=== PATIENT | female | born 1970 | race Caucasian/White ===

== ENCOUNTER → 2018-10-09 08:27 | Outpatient (CLI) | payer OTHER, SELFPAY ==
--- NOTE | 2018-10-09 | DI.MG.S_ITS ---
BILATERAL DIGITAL SCREENING MAMMOGRAM 3D/2D WITH CAD: 10/09/2018 CLINICAL: Routine screening. Comparison is made to exams dated: 09/12/2017 mammogram, 11/01/2015 mammogram, and 09/21/2014 mammogram - [facility]. The tissue of both breasts is extremely dense, which lowers the sensitivity of mammography. Current study was also evaluated with a Computer Aided Detection (CAD) system. There are benign calcifications in both breasts. A linear scar marker overlies the inferior medial right breast. No significant masses, calcifications, or other findings are seen in either breast. There has been no significant interval change. IMPRESSION: There is no mammographic evidence of malignancy. A 1 year screening mammogram is recommended. This exam was interpreted at Station ID: [id number]. NOTE: For mammograms, a report in lay terms will be sent to the patient. Approximately 15% of breast malignancies will not be visualized mammographically. In the management of a palpable breast mass, a negative mammogram must not discourage biopsy of a clinically suspicious lesion. Electronically Signed By: Huey Dominguez M.D. ecl/:10/10/2018 05:47:06 copy to: Dao Mcnally letter sent: Normal Exam ACR BI-RADS Category 2: Benign Finding(s) 3342F
== END ==
PROVIDERS: Family Provider Internal Medicine; PCP Internal Medicine; Visit Provider Physician Assistant Medical
DX: Z12.31 Encounter for screening mammogram for malignant neoplasm of breast (principal)
CPT/HCPCS: 77063; 77067

== ENCOUNTER → 2019-08-19 10:05 | Outpatient (CLI) | payer OTHER, SELFPAY ==
--- NOTE | 2019-08-19 10:14 | DI.CT.S_ITS ---
PROCEDURE: CT UE LT WO CON INDICATIONS: left wrist pain TECHNIQUE: Noncontrast 1 mm axial sections acquired through the carpal bones, with coronal and sagittal reformats. COMPARISON: [facility], MR, WRIST WITHOUT CONTRAST, 07/16/2014, 11:12. [facility], MR, KNEE WITHOUT CONTRAST, 04/03/2013, 19:03. FINDINGS: Image quality: Diagnostic. Bones: There is no acute fracture, dislocation, or suspicious osseous lesion involving the osseous structures of the wrist. Moderate degenerative cystic changes are evident involving the ulnar aspect of the lunate. There also are mild degenerative cystic changes involving the capitate and distal aspect of the scaphoid. Bony alignment of the osseous structures of the wrist is within normal limits. No significant degenerative changes are present. Soft tissues: No soft tissue masses or fluid collections are appreciated. No significant atrophy involving the intrinsic muscles of the hand or distal forearm are appreciated. Please note that the ligamentous, tendinous, and cartilaginous structures of the wrist are not adequately evaluated on CT. No obvious abnormalities are appreciated. IMPRESSION: 1. Degenerative cystic changes involving the lunate appear to have slightly progressed in the interim. 2. No acute fractures of the wrist. Dictated by: Hunter Murrell M.D. on 08/19/2019 at 10:58 Approved by: Hunter Murrell M.D. on 08/19/2019 at 11:03
== END ==
PROVIDERS: PCP Physician Assistant Medical
DX: M25.532 Pain in left wrist (principal)
CPT/HCPCS: 73200

== ENCOUNTER → 2019-12-17 09:01 | Outpatient (CLI) | payer OTHER, SELFPAY ==
--- NOTE | 2019-12-17 | DI.MG.S_ITS ---
BILATERAL DIGITAL SCREENING MAMMOGRAM 3D/2D WITH CAD: 12/17/2019 CLINICAL: Routine screening. Comparison is made to exams dated: 10/09/2018 mammogram, 09/12/2017 mammogram, 11/01/2015 mammogram, 09/21/2014 mammogram, and 04/24/2011 mammogram - [facility]. The tissue of both breasts is extremely dense, which lowers the sensitivity of mammography. Current study was also evaluated with a Computer Aided Detection (CAD) system. There are calcifications in both breasts that are not significantly changed from prior exams. No significant masses, calcifications, or other findings are seen in either breast. There has been no significant interval change. IMPRESSION: There is no mammographic evidence of malignancy. A 1 year screening mammogram is recommended. This exam was interpreted at Station ID: [id number]. NOTE: For mammograms, a report in lay terms will be sent to the patient. Approximately 15% of breast malignancies will not be visualized mammographically. In the management of a palpable breast mass, a negative mammogram must not discourage biopsy of a clinically suspicious lesion. Electronically Signed By: Huey Dominguez M.D. ecl/:12/17/2019 11:32:32 letter sent: Normal Exam ACR BI-RADS Category 2: Benign Finding(s) 3342F
== END ==
PROVIDERS: PCP Physician Assistant Medical
DX: Z12.31 Encounter for screening mammogram for malignant neoplasm of breast (principal)
CPT/HCPCS: 77063; 77067

== ENCOUNTER → 2020-01-09 09:29 | Outpatient (CLI) | payer OTHER, SELFPAY ==
--- NOTE | 2020-01-09 | DI.MRI.S_ITS ---
PROCEDURE: MR KNEE RT WO CON INDICATIONS: Unspecified internal derangement of right knee TECHNIQUE: Noncontrast sagittal PD fast spin echo and T2 fast spin echo with fat saturation, sagittal 3-D FLASH with fat saturation; coronal T1 spin echo and PD fast spin echo with fat saturation, and axial PD fast spin echo with fat saturation through the knee. COMPARISON: Located [facility], MR, KNEE WITHOUT CONTRAST, 04/03/2013, 19:03. FINDINGS: Image quality: Excellent. Menisci: There is increased horizontally oriented linear high T2 signal intensity traversing the lateral meniscal body, demonstrating superior articular surface extension, indicating horizontal tearing. Amorphous high signal intensity within the posterior horn medial meniscus demonstrating inferior articular surface extension is unchanged. Cruciate ligaments: The anterior cruciate ligament graft is present, which demonstrates lateral fixation, as before. ACL graft is intact. Posterior cruciate ligament is intact. Medial structures: Status post medial collateral ligament and medial capsular repair. Medial collateral heterogeneous but intact, as before. Visualized portions of the pes anserinus tendons appear normal. Mild T2 signal elevation within the semimembranosus tendon at the tibial insertion site is present. No abnormal bursal fluid. Lateral structures: The lateral collateral ligament, long and short heads of the biceps femoris tendon appear intact. The popliteus tendon appears normal. Iliotibial band appears normal. Anterior structures: The quadriceps and patellar tendons appear intact. Patellar alignment is normal. No femoral trochlear dysplasia or ventral trochlear prominence. No edema in the infrapatellar fat pad. Bones and cartilage: No bone marrow contusions or fractures. There is mild tricompartmental periarticular osteophyte formation. Ligament anchor within the proximal tibia is present. There is mild subchondral degenerative marrow edema within the patellar apex and lateral patellar facet. There is a new, 17 mm diameter full-thickness articular cartilage defect overlying the weightbearing aspect of the medial femoral condyle. Mild diffuse articular cartilage loss overlies the weightbearing aspects of the lateral femoral condyle and lateral tibial plateau. There is increased, severe articular cartilage loss overlying the patellar apex and lateral patellar facet. Joint space: There is a small knee joint effusion and a small Galarza's cyst. Normal appearing synovial plicae are incidentally noted. IMPRESSION: 1. Intact ACL graft. 2. Medial and lateral meniscal tearing as described above. 3. Tricompartmental osteoarthritis with associated articular cartilage loss. New/progressive articular cartilage loss involving the medial and patellofemoral compartments. 4. Intact medial collateral ligament reconstruction. 5. Insertional tendinitis of the semimembranosus. 6. Knee joint effusion and Galarza's cyst. Dictated by: Zahida Cristina M.D. on 01/11/2020 at 8:50 Approved by: Zahida Cristina M.D. on 01/11/2020 at 8:58
== END ==
PROVIDERS: PCP Physician Assistant Medical; Referring Provider Physician Assistant Medical; Visit Provider Orthopaedic Surgery
DX: S83.281A Other tear of lateral meniscus, current injury, right knee, initial encounter (principal); S83.241A Other tear of medial meniscus, current injury, right knee, initial encounter; M17.11 Unilateral primary osteoarthritis, right knee; M71.21 Synovial cyst of popliteal space [Baker], right knee; M25.461 Effusion, right knee
CPT/HCPCS: 73721

== ENCOUNTER → 2020-06-23 14:06 | Outpatient (CLI) | payer OTHER, SELFPAY ==
--- NOTE | 2020-06-23 | DI.US.S_ITS ---
ULTRASOUND OF RIGHT BREAST AND AXILLA: 06/23/2020 CLINICAL: Palpable right breast lump. Comparison is made to exams dated: 06/23/2020 mammogram, 12/17/2019 mammogram, 10/09/2018 mammogram, 09/12/2017 mammogram, 11/01/2015 mammogram, and 09/21/2014 mammogram - [facility]. Color flow and real-time ultrasound of the right breast axilla were performed. Landry scale images of the real-time examination were reviewed. There is a 1.1 cm x 1.4 cm x 1.2 cm irregular mass with indistinct and angular margins in the right breast at 6 o'clock posterior depth 7 cm from the nipple. This irregular mass is hypoechoic with posterior acoustic shadowing. This correlates as palpated, with mammography findings, and area of clinical concern. There is associated architectural distortion. Color flow imaging demonstrates that there is vascularity present. No significant abnormalities were seen sonographically in the right axilla. IMPRESSION: SUSPICIOUS OF MALIGNANCY The 1.1 cm x 1.4 cm x 1.2 cm irregular mass in the right breast is suspicious of malignancy. An ultrasound guided biopsy is recommended. Findings and biopsy recommendations were discussed with the patient by Dr. Loza during today's visit. This exam was interpreted at Station ID: [id number]. Electronically Signed By: Aki Koehler M.D. aty/:06/23/2020 16:52:25 letter sent: Biopsy Required Ultrasound BI-RADS: 4 Suspicious for malignancy
--- NOTE | 2020-06-23 | DI.MG.S_ITS ---
UNILATERAL RIGHT DIGITAL DIAGNOSTIC MAMMOGRAM 3D/2D: 06/23/2020 CLINICAL: Right breast mass and dimpling. Comparison is made to exams dated: 12/17/2019 mammogram, 10/09/2018 mammogram, and 09/12/2017 mammogram - [facility]. The tissue of right breast is heterogeneously dense. This may lower the sensitivity of mammography. There are benign calcifications in the right breast that are not significantly changed. The right breast has post-operative findings with development of new irregular architectural distortion in the right breast posterior depth inferior region seen on the mediolateral oblique view only. There is a post-surgical scar associated with the architectural distortion. No other significant masses or calcifications are seen in the breast. IMPRESSION: INCOMPLETE: NEEDS ADDITIONAL IMAGING EVALUATION The new irregular architectural distortion in the right breast is indeterminate. Further evaluation with ultrasound is recommended and scheduled to immediately follow this exam. This exam was interpreted at Station ID: [id number]. NOTE: For mammograms, a report in lay terms will be sent to the patient. Approximately 15% of breast malignancies will not be visualized mammographically. In the management of a palpable breast mass, a negative mammogram must not discourage biopsy of a clinically suspicious lesion. Electronically Signed By: Aki Koehler M.D. aty/:06/23/2020 16:46:25 ACR BI-RADS Category 0: Incomplete 3340F
== END ==
PROVIDERS: PCP Physician Assistant Medical; Referring Provider Physician Assistant Medical; Visit Provider Physician Assistant Medical
DX: R92.8 Other abnormal and inconclusive findings on diagnostic imaging of breast (principal); N63.15 Unspecified lump in the right breast, overlapping quadrants
CPT/HCPCS: 76642; 77065; G0279

== ENCOUNTER → 2020-07-05 13:43 | Outpatient (CLI) | payer OTHER, SELFPAY ==
--- NOTE | 2020-07-05 | DI.US.S_ITS ---
ULTRASOUND GUIDED BIOPSY RIGHT BREAST USING VACUUM DEVICE WITH MARKING DEVICE INSERTED: 07/05/2020 CLINICAL: Right breast mass. PATIENT CONSENT: Risks (minor bleeding, infection, vasovagal reaction and repeat procedure), benefits and alternatives were explained to the patient and written informed consent was obtained. Correlation is made to exams dated: 06/23/2020 ultrasound, 06/23/2020 mammogram, 12/17/2019 mammogram, and 10/09/2018 mammogram - [facility]. An ultrasound guided biopsy using real-time ultrasound was performed for the irregular shaped mass located in the right breast at 6 o'clock posterior depth. The skin was prepped in the usual manner. Local anesthetic was administered to the access site. A small incision was made in the breast. The abnormality was approached from the lateral aspect. A biopsy needle was placed adjacent to the abnormality under ultrasound guidance. Once the needle was documented to be in the correct location, seven specimens were obtained using the Mammotome biopsy system. A clip was inserted into the biopsy cavity. The specimens were sent to the laboratory for pathological analysis. IMPRESSION: ULTRASOUND GUIDED BIOPSY MALIGNANT Ultrasound guided biopsy of the mass in the right breast at 6 o'clock posterior depth was successful. 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 Pathology results are concordant with imaging findings. A surgical/oncologic consultation is recommended. This exam was interpreted at Station ID: [id number]. Heath elmore,aty/:07/11/2020 18:45:23
--- NOTE | 2020-07-05 | PATH_ITS ---
[facility] Accession Number: [id number] . 01 Material submitted: . breast - RIGHT BREAST 6:00 . 02 Diagnosis: Right Breast, 6 O'Clock, Needle Core Biopsies: Invasive ductal carcinoma with the following features: Philadelphia grade 1 of 3 (moderate tubule formation, moderate nuclear grade, low mitotic activity). Greatest linear extent: 1.1 cm. DCIS: Focally present, cribriform. Microcalcifications: Not identified. Lymphovascular invasion: Not identified. . . CAP BREAST BIOMARKER REPORTING TEMPLATE: . Estrogen Receptor (ER) Status: Positive, 90%. Average intensity of staining: Strong. Primary antibody: SP1 Progesterone Receptor (PgR) Status: Positive, 50%. Average intensity of staining: Strong. Primary antibody: 1E2 HER2 (by immunohistochemistry): Equivocal (2+). Percentage of cells with uniform intense complete membrane staining: Primary antibody: 4B5 . Cold Ischemia and Fixation Times: Meets requirements in the latest version of the ASCO/CAP guidelines. Testing performed on Block Number: . TECHNICAL NOTE: The scoring criteria for breast biomarkers by immunohistochemistry is based on the current ASCO/CAP guidelines (Ibis et al, Arch Pathol Lab Med 2010: 134(6): 907-922 / Catarina Morfin al, Arch Pathol Lab Med 2014: 138(2): 241-256). Deparaffinized sections of formalin fixed tissue (along with appropriate positive controls) are incubated with the above antibody(s). Using the automated Mina stainer, tissue is incubated with the designated antibody* which is then localized by a non-biotin, dual polymer detection system. The external controls are reviewed for appropriate reactivity and found to be adequate. Results on the target cell population are indicated above. These tests have not been validated on decalcified tissue. * This test was developed and its performance characteristics determined by [employer]. It has not been cleared or approved by the U.S. Food and Drug Administration. The FDA has determined that such clearance or approval is not necessary. This test is used for clinical purposes. It should not be regarded as investigational or for research. . [facility] 07/07/2020 1438 [facility] . 02 Comment: The carcinoma is equivocal (2+) for HER2 overexpression by immunohistochemical technique. Fluorescence in-situ hybridization will be performed, and results issued in an addendum. . As part of routine quality compliance coordinator, Dr. Hooker has reviewed this case and agrees with the diagnosis of invasive ductal carcinoma. The preliminary finding of invasive carcinoma was discussed with the referring clinician, Jane Campos, and Dr. Silva on 07/06/20 at 4:30 p.m. . 02 Electronically signed: . Luis Eduardo Silva MD, PhD, Pathologist NPI- [id number] . 01 Gross description: . Received in formalin, labeled right breast, are five pieces of [place] adipose tissue measuring 1.4 x 0.7 x 0.3 cm to 0.7 x 0.6 x 0.3 cm. Three pieces are submitted in cassette A1, and two pieces are submitted in cassette A2. The container is labeled 6 o'clock, assuming 6:00 a.m. Approximate fixation time of 24 hours after processing. ([id number]) /[facility] 07/06/2020 0221 Local . 02 Microscopic: . The carcinoma cells are strongly and diffusely positive for E-Cadherin immunoreactivity by immunohistochemistry, consistent with ductal carcinoma. A control stain showss appropriate reactivity. . * This test was developed and its performance characteristics determined by [employer]. It has not been cleared or approved by the U.S. Food and Drug Administration. The FDA has determined that such clearance or approval is not necessary. This test is used for clinical purposes. It should not be regarded as investigational or for research. . 02 Pathologist provided ICD-10: C50.911 . 02 CPT . 261071, V12553, R19592 Performed at: 01 [facility] [address], [place], [place] [id number] MD Roger Pierre MD Phone: [phone] Performed at: 02 [facility] [address] [place] [id number] MD Sienna Hooker MD Phone: [phone]
--- NOTE | 2020-07-05 | DI.MG.S_ITS ---
UNILATERAL RIGHT DIGITAL DIAGNOSTIC MAMMOGRAM POST-NEEDLE BIOPSY: 07/05/2020 CLINICAL: Right breast mass. Comparison is made to exams dated: 06/23/2020 mammogram, 12/17/2019 mammogram, and 10/09/2018 mammogram - [facility]. The tissue of right breast is heterogeneously dense. This may lower the sensitivity of mammography. There is a marker clip in the appropriate position in the right breast at 6 o'clock anterior depth. This marker clip placement is at the biopsy site. IMPRESSION: POST PROCEDURE MAMMOGRAM FOR MARKER PLACEMENT There was a successful marker clip placement in the right breast at 6:00 position This exam was interpreted at Station ID: [id number]. NOTE: For mammograms, a report in lay terms will be sent to the patient. Approximately 15% of breast malignancies will not be visualized mammographically. In the management of a palpable breast mass, a negative mammogram must not discourage biopsy of a clinically suspicious lesion. Electronically Signed By: Heath elmore/:07/05/2020 16:27:34 ACR BI-RADS Category Post-procedure mammogram for marker placement
== END ==
PROVIDERS: PCP Physician Assistant Medical; Referring Provider Physician Assistant Medical; Visit Provider Physician Assistant Medical
DX: C50.811 Malignant neoplasm of overlapping sites of right female breast (principal); Z17.0 Estrogen receptor positive status [ER+]
CPT/HCPCS: 19083; 77065

== ENCOUNTER → 2020-07-25 13:49 | Outpatient (CLI) | payer OTHER, SELFPAY | PROVIDERS: PCP Physician Assistant Medical; Referring Provider Internal Medicine; Visit Provider Internal Medicine | DX: C50.919 Malignant neoplasm of unspecified site of unspecified female breast (principal) | CPT/HCPCS: 77080 ==

== ENCOUNTER → 2020-07-25 13:51 | Oncology outpatient (ONC) | payer OTHER, SELFPAY ==
[2020-07-20 10:22] VITALS: BP 135/91; PULSE 70; RESP 16; TEMP 36.9; O2SAT 100
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
--- NOTE | 2020-07-20 11:17 | ONC.MSW ---
Description: New Pt F/F Visit Activity: Met with pt/spouse to introduce myself as the navigator/MATERIALS PLANNING MANAGER, offered services card, and discussed what to expect with her first provider appointment and moving forward. Pt has not yet been referred to a surgeon, and is hoping to get more information today about what her options are, as well as extent of disease. Pt shares that they have 2-children, a 19-year old son, and 16-year old dtr. Pt appears to be coping well at this time, denies any further immediate needs at this time. MATERIALS PLANNING MANAGER will continue to monitor for adjustment to dx, and next steps for tx.
--- NOTE | 2020-07-20 13:51 | ONC.SCHED ---
I called and left a message for the patient to call us after she finds out when her surgery date is so that we can schedule her a follow up appt per Dr. Whatley's dictation.
[2020-07-25 14:51] LABS: Add Manual Diff / Slide Review NO; Basophils Absolute Auto 0 /uL (0-100); Basophils Percent Auto 0.5 % (0-2); Eosinophils Absolute Auto 100 /uL (0-450); Hematocrit 39.3 % (36-46); Hemoglobin 13.4 g/dL (12.0-16.0); Lymphocytes Absolute Auto 1800 /uL (1100-4500); Lymphocytes Percent Auto 24.7 % (25-40); Mean Corpuscular Hemoglobin 29.8 PG (26-34); Mean Corpuscular Volume 87.7 fL (80-100); Monocytes Absolute Auto 400 /uL (0-900); Monocytes Percent Auto 5.8 % (3-14); Neutrophils Absolute Auto 5000 /uL (1500-7000); Platelet Count 292 X10^3/uL (150-400); Red Blood Cell Count 4.48 X10^6/uL (4.0-5.2); White Blood Cell Count 7.4 X10^3/uL (4.5-11.0)
[2020-07-25 15:21] LABS: Alanine Aminotransferase 14 IU/L (<35); Albumin 4.3 g/dL (3.5-5.0); Albumin Globulin Ratio 1.3 (1.0-2.8); Alkaline Phosphatase 68 U/L (38-126); Aspartate Aminotransferase 26 IU/L (14-36); BUN Creatinine Ratio 24.7 (6-22); Bilirubin Total 0.6 mg/dL (0.2-1.3); Blood Urea Nitrogen 20 mg/dL (7-17); Calcium 9.4 mg/dL (8.4-10.2); Carbon Dioxide 28 mmol/L (22-32); Chloride 102 mmol/L (98-107); Estimated Glomerular Filt Rate > 60.0 mL/min (>60); Globulin 3.2 g/dL (1.7-4.1); Glucose 92 mg/dL (70-100); HEMOLYSIS < 15 (0-50); Potassium 4.1 mmol/L (3.4-5.1); Sodium 137 mmol/L (137-145); Total Protein 7.5 g/dL (6.3-8.2)
== END ==
PROVIDERS: PCP Physician Assistant Medical; Referring Provider Physician Assistant Medical; Visit Provider Internal Medicine
DX: C50.811 Malignant neoplasm of overlapping sites of right female breast (principal); Z17.0 Estrogen receptor positive status [ER+]
CPT/HCPCS: 36415; 77080; 80053; 82670; 83001; 83002; 85025; 99205; 99215

== ENCOUNTER → 2020-10-03 14:45 | Outpatient (CLI) | payer OTHER, SELFPAY ==
--- NOTE | 2020-10-03 | DI.US.S_ITS ---
PROCEDURE: US THYROID INDICATIONS: NONTOXIC SINGLE THYROID NODULE TECHNIQUE: Real-time scanning was performed of the thyroid gland, with image documentation. COMPARISON: None. FINDINGS: Right: Thyroid lobe measures 1.5 x 2.3 x 4.5 cm, and is homogeneous in echotexture. Left: Thyroid lobe measures 1.3 x 1.9 x 4.4 cm, and is homogenous in echotexture. Isthmus: 3 mm thick. Nodule number: 1 Location: Middle 3rd left thyroid lobe Size: 4 x 7 x 8 mm. Composition: Predominately solid Echogenicity: Hypoechoic Shape: Wider than tall Margins: Smoothly marginated Echogenic foci: None Total points: 4 ACR TI-RADS category: Category 4, with no recommended follow-up given small size. Nodule number: 2 Location: Left isthmus Size: 2 x 3 x 5 mm ACR TI-RADS category: Category 3, no follow-up recommended given small size. Nodule number: 3 Location: Left lower thyroid gland. Size: 2 x 4 x 4 mm ACR TI-RADS category: 4, and no follow-up is recommended given small size. IMPRESSION: 3 small thyroid nodules are identified on the left none of which warrant specific follow-up given small size. Dictated by: Elmo Jeffries M.D. on 10/03/2020 at 16:22 Approved by: Elmo Jeffries M.D. on 10/03/2020 at 16:30
== END ==
PROVIDERS: PCP Physician Assistant Medical; Referring Provider Physician Assistant Medical; Visit Provider Internal Medicine
DX: E04.2 Nontoxic multinodular goiter (principal)
CPT/HCPCS: 76536

== ENCOUNTER → 2021-02-13 11:30 | Outpatient (CLI) | payer OTHER, SELFPAY ==
--- NOTE | 2021-02-13 | DI.MG.S_ITS ---
UNILATERAL LEFT DIGITAL SCREENING MAMMOGRAM 3D/2D WITH CAD POST MASTECTOMY: 02/13/2021 CLINICAL: Routine screening. Breast cancer. Comparison is made to exams dated: 07/05/2020 mammogram, 06/23/2020 mammogram, 12/17/2019 mammogram, 10/09/2018 mammogram, and 09/12/2017 mammogram - [facility]. The tissue of left breast is heterogeneously dense. This may lower the sensitivity of mammography. Current study was also evaluated with a Computer Aided Detection (CAD) system. There are benign diffuse calcifications in the left breast. No significant masses, calcifications, or other findings are seen in the breast. There has been no significant interval change. IMPRESSION: BENIGN There is no mammographic evidence of malignancy. A 1 year screening mammogram is recommended. This exam was interpreted at Station ID: [id number]. NOTE: For mammograms, a report in lay terms will be sent to the patient. Approximately 15% of breast malignancies will not be visualized mammographically. In the management of a palpable breast mass, a negative mammogram must not discourage biopsy of a clinically suspicious lesion. Electronically Signed By: Libra orozco/nissa:02/13/2021 12:28:36 letter sent: Normal Exam ACR BI-RADS Category 2: Benign Finding(s) 3342F
== END ==
PROVIDERS: PCP Physician Assistant Medical; Referring Provider Internal Medicine Medical Oncology; Visit Provider Internal Medicine Medical Oncology
DX: Z12.31 Encounter for screening mammogram for malignant neoplasm of breast (principal); Z85.3 Personal history of malignant neoplasm of breast
CPT/HCPCS: 77063; 77067

== ENCOUNTER 2021-08-23 07:24 | Day surgery (SDC) | payer OTHER, SELFPAY ==
[2021-08-23] VITALS (7 sets, daily range): BP systolic 117–138; BP diastolic 71–84; PULSE 67–83; RESP 10–17; TEMP 36.2–37.1; O2SAT 99–100; BMI 24.2
--- NOTE | 2021-08-23 | PATH_ITS ---
[facility] Accession Number: [id number] . 01 Material submitted: . colon - TRANSVERSE COLON BIOPSY . 02 Diagnosis: Transverse Colon, Biopsy: Tubular adenoma. MRV 08/25/2021 1313 Local . 02 Electronically signed: . Sienna Hooker MD, Pathologist NPI- [id number] . 01 Gross description: . TRANSVERSE COLON BIOPSY: Received in formalin is 1 fragment(s) of segovia, soft tissue measuring 0.5 x 0.3 x 0.2 cm submitted entirely in 1 cassette(s) /GET 08/24/2021 1329 Local . 02 Pathologist provided ICD-10: D12.3 . 02 CPT . 273293 Performed at: 01 [facility] [address] [place] [address], [place], [place] [id number] MD Roger Pierre MD Phone: [phone] Performed at: 02 [facility] [address] [place], [place] [id number] MD Sienna Hooker MD Phone: [phone]
[2021-08-23 07:56] LABS: COVID19 -Nasal RAPID Negative (Negative)
[2021-08-23] MEDS: SODIUM CHLORIDE 0.9% 1,000 ML 84 ML IV (08:16)
--- NOTE | 2021-08-23 08:42 | P.HP_ITS ---
History of Present Illness History of Present Illness Date Patient Seen: 08/23/21 Time Patient Seen: 08:42 Chief complaint: SDC Narrative: I reviewed Dr. Clark's recent note. Patient History Medical History Breast cancer, right Surgical History Status post knee surgery Family & Social History Social History: household members spouse Tobacco & Substance use: Smoking Status Never smoker alcohol intake frequency a few times a week Substance Use Type does not use Meds Home Medications and Allergies Home Medications Medication Instructions Recorded Confirmed Type CA PANTOTHENATE/FOLIC ACID/VIT 1 #0 05/31/11 08/09/20 History (MULTIVITAMIN) ibuprofen 200 mg tablet (Advil) 200 mg PO Q6H PRN 08/22/21 08/23/21 History Allergies Allergy/AdvReac Type Severity Reaction Status Date / Time No Known Drug Allergies Allergy Verified 08/09/20 12:05 Review of Systems Review of Systems ROS: Yes All systems reviewed with the patient and are negative except as otherwise documented Exam Vital Signs (past 8 hours): - 08/23/21 08:04 Temperature 98.8 F Pulse Rate 73 Respiratory Rate 16 Blood Pressure 128/77 Pulse Oximetry 100 Oxygen Delivery Method Room Air Const General: cooperative and comfortable Orientation: alert HENMT Head: normocephalic Ears: external ears normal Nose: external nose normal Face and sinus: normal facial exam Mouth: oral mucosae normal Eyes General: appearance normal, both eyes and all related structures Neck Neck: normal visual inspection Chest Chest: normal inspection of the chest Resp Effort & Inspection: normal respiratory effort Auscultation: clear to auscultation bilaterally Cardio Rate: regular rate Rhythm: regular rhythm Heart Sounds: no murmurs GI Inspection: normal to inspection Palpation: soft and No tender Auscultation: normal bowel sounds Skin General: no rashes or lesions noted and No jaundice Neuro General: patient alert and moves all extremities Cognition: normal cognition Speech: speech normal Extrem General: no pedal edema Psych Appearance: grossly normal Objective Labs Labs: Laboratory Results - last 24 hr 08/23/21 07:33 SARS-CoV-2 (PCR) Negative Assessment & Plan Assessment & Plan narrative: Family history of colon cancer in multiple second- degree relatives. Colonoscopy is planned for today. Time Spent With Patient Critical Care time: I spent a total of [] minutes of critical care time on this patient's care today; this time is exclusive of procedural time.
--- NOTE | 2021-08-23 08:43 | PM.PREOP ---
Pre-operative Note COVID-19 COVID-19 status: Negative Result date/Date tested (Pos, Neg/Pending): 08/23/21 Interval Note History & Physical reviewed/Exam performed by Physician: Yes Changes to H&P: No ASA Class (for procedural sedation): II
--- NOTE | 2021-08-23 09:35 | PM.OP.ENDO ---
Operative Date/Time/Diagnoses Date of procedure: 08/23/21 Time of procedure: 09:35 Pre-op diagnosis: Family history of colon cancer in multiple second-degree relatives Post-op diagnosis: same Procedure & Clinicians Study performed: Colonoscopy with hot snare polypectomy Same procedure as scheduled: Yes Indications: Family history of colon cancer in multiple second-degree relatives Surgeon: Iraj Espino Procedure Notes SCOAP/Timeout: Done Procedure in detail: After the risks and benefits were explained, written and verbal informed consent was obtained. The patient was brought into the procedure room and placed into the left lateral decubitus position. Conscious sedation medication was applied as per nursing documentation. Digital rectal examination was accomplished. The scope was introduced into the patient and advanced under direct visualization to the cecum as identified by the appendiceal orifice and ileocecal valve. The scope was slowly withdrawn to carefully examine the mucosa for any defects or lesions. Comprehensive imaging was accomplished throughout the rectum including the dentate line. The colon was decompressed, the scope was then removed from the patient who tolerated the procedure well. Bowel prep adequate Pediatric colonoscope Scope withdrawal time: 10 minutes Sedation minutes: 18 Complications: none Impression: In the distal transverse colon there was an approximately 6 mm sessile polyp removed with hot snare polypectomy. No other significant mucosal pathology was appreciated throughout. The grade 1 internal hemorrhoids were noted. Endoscopic diagnosis 1. Colon polyp 2. Grade 1 internal hemorrhoids Post-procedure Recommendations: Colonscopy in 5 years Plan for aftercare: 1. Await histopathology 2. Repeat colonoscopy 5 years Disposition: PACU
--- NOTE | 2021-08-23 09:41 | SUR.PHASEI ---
Received to PACU after colonscopy with sedation. Report received from LISA Shepard and SASHA Chavira.
== END 2021-08-23 10:23 | disposition home or self-care (01) ==
PROVIDERS: PCP Physician Assistant Medical; Referring Provider Internal Medicine Gastroenterology; Visit Provider Internal Medicine Gastroenterology
PROC: 0DJD8ZZ Inspection of Lower Intestinal Tract, Via Natural or Artificial Opening Endoscopic (ICD-10-PCS; CPT 45378; principal; 2021-08-23 09:00)
DX: Z12.11 Encounter for screening for malignant neoplasm of colon (principal); Z80.0 Family history of malignant neoplasm of digestive organs; Z85.3 Personal history of malignant neoplasm of breast; Z20.822 Contact with and (suspected) exposure to COVID-19; K64.0 First degree hemorrhoids; D12.3 Benign neoplasm of transverse colon
CPT/HCPCS: 45385; 87635